=== PATIENT | female | born 1990 | race African-American/Black ===

== ENCOUNTER 2016-09-14 18:50 | Emergency (ER) | payer MEDICAID ==
[~2016-09-14] VITALS: Ht 175.3 cm; Wt 88.0 kg
[2016-09-14 19:09] VITALS: BP 113/83
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
--- NOTE | 2016-09-14 19:19 | NUR ---
TO ER OF2
--- NOTE | 2016-09-14 20:15 | NUR ---
Patient being evaluated by DR. FERGUSON at bedside.
[2016-09-14] MEDS ORDERED: IBUPROFEN 800 MG TAB PO ONE (21:50)
[2016-09-14] MEDS ORDERED: oxyCODONE/APAP 5/325 MG 1 TAB TAB PO ONE (23:00)
[2016-09-14 23:25] VITALS: BP 115/78
--- NOTE | 2016-09-14 23:25 | NUR ---
Patient discharged with v/s stable. Written and verbal after care instructions given and explained. Patient alert, oriented and verbalized understanding of instructions. Ambulatory with steady gait. All questions addressed prior to discharge. ID band removed. Patient advised to follow up with PMD. Rx of FLEXERIL 5 MG,MOTRIN 800 MG, PERCOCET 5/325 MG given. Patient educated on indication of medication including possible reaction and side effects. Opportunity to ask questions provided and answered.
== END 2016-09-14 23:25 | disposition home or self-care (01) ==
LOC: MED 18:50
DX: S16.1XXA Strain of muscle, fascia and tendon at neck level, initial encounter (principal); Z88.5 Allergy status to narcotic agent; V43.52XA Car driver injured in collision with other type car in traffic accident, initial encounter; Y93.I9 Activity, other involving external motion; Y92.488 Other paved roadways as the place of occurrence of the external cause; Y99.8 Other external cause status
CPT/HCPCS: 72050; 81025; 99284